=== PATIENT | female | born 1965 | race Caucasian/White ===

== ENCOUNTER → 2016-09-15 | Day surgery (SDC) | payer OTHER ==
--- NOTE | 2016-09-16 09:51 | PATH ---
Surgical Pathology Report Patient Name: NAJMA MONROE [facility]. Rec. #: [id number] /Age/Gender: 1965 (Age: 51) / F Account: [id number] Location: [facility] Taken: 09/15/2016 Received: 09/15/2016 Reported: 09/16/2016 Physicians: Alee Doran Specimen(s) Received A: LEFT BREAST WITH CALCIFICATIONS B: LEFT BREAST SPECIMEN WITHOUT CALCIFICATIONS Clinical History Nonpalpable lesion, microcalcification, suspicious Final Diagnosis A. LEFT BREAST, WITH CALCIFICATION, STEREOTACTIC NEEDLE CORE BIOPSY: BENIGN BREAST TISSUE WITH FIBROCYSTIC CHANGES INCLUDING USUAL DUCTAL HYPERPLASIA (UDH), STROMAL FIBROSIS, DUCTAL DILATATION, CYSTIC APOCRINE METAPLASIA, AND ASSOCIATED CALCIFICATION. B. LEFT BREAST, WITHOUT CALCIFICATION, STEREOTACTIC NEEDLE CORE BIOPSY: BENIGN BREAST TISSUE WITH FIBROCYSTIC CHANGES INCLUDING STROMAL FIBROSIS AND DUCTAL DILATATION. Electronically Signed Duglas Pascal M.D. Gross Description A. Received in formalin labeled "left breast with calcifications," is a 2.0 x 1.3 x 0.3 cm aggregate of multiple mohan-yellow, irregular to cylindrical portions of fibroadipose tissue. The formalin is filtered and the specimen is entirely submitted in one cassette. B. Received in formalin labeled "left breast without calcifications," is a 1.3 x 1.1 x 0.3 cm aggregate of multiple mohan-yellow, irregular to cylindrical portions of fibroadipose tissue. The formalin is filtered and the specimen is entirely submitted in one cassette. 09/15/201609/15/2016
== END | disposition home or self-care (01) ==
LOC: FMAMMOTONE 10:35
PROVIDERS: ATTEND Physician Assistant
PROC: 0HBU3ZX Excision of Left Breast, Percutaneous Approach, Diagnostic (ICD-10-PCS; principal; 2016-09-15)
DX: N60.82 Other benign mammary dysplasias of left breast (principal); R92.8 Other abnormal and inconclusive findings on diagnostic imaging of breast; N60.32 Fibrosclerosis of left breast; N60.12 Diffuse cystic mastopathy of left breast; N64.89 Other specified disorders of breast
CPT/HCPCS: 19081; 87899; 88305-TC; A4648

== ENCOUNTER 2017-05-27 08:44 | Emergency (ER) | payer OTHER ==
[2017-05-27 08:48] VITALS: BP 136/87; PULSE 83; TEMP 98.2; BMI 27.8
--- NOTE | 2017-05-27 09:19 | PDOC ---
History of Present Illness - General Chief Complaint: Ear Problem Stated Complaint: EAR PROBLEM Time Seen by Provider: 05/27/17 09:06 History Source: Patient Exam Limitations: No Limitations - History of Present Illness Initial Comments: 05/27/17 09:25 And came for evaluation of left ear pain. 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 Has been using Tylenol or Motrin. last night had worsening pain in her left ear and then onset of yellowish green drainage from same. Denies further fever, but has some buzzing inear. Timing/Duration: unsure Severity: mild, moderate Associated Symptoms: reports: headaches, malaise. denies: cough, fever/chills Past History - Travel Traveled outside of the country in the last 30 days: No Close contact w/someone who was outside of country & ill: No - Past Medical History Allergies/Adverse Reactions: Allergies Allergy/AdvReac Type Severity Reaction Status Date / Time Iodinated Contrast- Oral and Allergy Intermediate Verified 05/27/17 08:48 IV Dye Home Medications: Ambulatory Orders Amoxicillin - [Amoxicillin 875mg Tablet -] 875 mg PO BID 05/27/17 Ofloxacin Otic [Floxin Otic -] 1 drop BID #10 drops 05/27/17 COPD: No - Suicide/Smoking/Psychosocial Hx Smoking Status: No Smoking History: Never smoked Number of Cigarettes Smoked Daily: 0 Review of Systems - Review of Systems Able to Perform ROS?: Yes Is the patient limited Turkmen proficient: Yes Constitutional: Yes: Symptoms Reported, See HPI, Malaise. No: Chills, Fever HEENTM: Yes: Symptoms Reported, See HPI, Ear Pain, Ear Discharge, Nose Congestion Respiratory: Yes: See HPI. No: Symptoms reported All Other Systems: Reviewed and Negative *Physical Exam - Vital Signs Last Vital Signs Temp Pulse Resp BP Pulse Ox 98.2 F 83 18 136/87 97 05/27/17 08:45 05/27/17 08:45 05/27/17 08:45 05/27/17 08:45 05/27/17 08:45 - Physical Exam General Appearance: Yes: Nourished, Appropriately Dressed, Apparent Distress, Mild Distress HEENT: positive: MARIA ANTONIA, Pharynx Normal, Rhinorrhea, Hearing Grossly Normal, TM Bulging, TM Dull. 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 NML intact, Fully Oriented, Alert, Normal Mood/ Affect, Normal Response, Motor Strength 5/5 *DC/Admit/Observation/Transfer Diagnosis at time of Disposition: Otitis media Qualifiers: Otitis media type: suppurative Chronicity: acute Laterality: left Recurrence: not specified as recurrent Spontaneous tympanic membrane rupture: with spontaneous rupture Qualified Code(s): H66.012 - Acute suppurative otitis media with spontaneous rupture of ear drum, left ear - Discharge Dispostion Disposition: HOME Condition at time of disposition: Stable Admit: No - Referrals Referrals: Bart Munguia MD [Primary Care Provider] - Shaun Pelletier MD [Staff Physician] - - Patient Instructions Printed Discharge Instructions: DI for Otitis Media (Middle Ear Infection)- Child Additional Instructions: Rest, lots of fluids; water, teas, soups Saltwater girls and steamy showers Hot wet soaks to ear/hot packs may help relieve some pain Continue ibuprofen or Tylenol for pain and fevers Complete all antibiotics as directed followup with private physician / ENT doctor in 2-3 days - Post Discharge Activity Forms/Work/School Notes: Back to Work
== END 2017-05-27 09:26 | disposition home or self-care (01) ==
LOC: JERFT 08:44
DX: H66.012 Acute suppurative otitis media with spontaneous rupture of ear drum, left ear (principal)
CPT/HCPCS: 99281-25

== ENCOUNTER 2017-07-22 12:57 | Emergency (ER) | payer OTHER ==
[2017-07-22 13:14] VITALS: BP 155/96; PULSE 89; TEMP 98; BMI 25.9
--- NOTE | 2017-07-22 13:58 | PDOC ---
History of Present Illness - General Chief Complaint: Sore Throat Stated Complaint: SORE THROAT, FEVER Time Seen by Provider: 07/22/17 13:30 - History of Present Illness Initial Comments: 07/22/17 13:52 The patient is a 52 year old female with no significant PMH who presents for evaluation of sore throat. The patient reports a 4 day history of sore throat and nasal congestion. She notes worsening symptoms over the past 2 days prompting her presentation to the ED for evaluation. She notes a cough, but denies any fevers, chills, SOB, chest pain, nausea, vomiting, abdominal pain, or changes with urination or bowel movements. Past History - Past Medical History Allergies/Adverse Reactions: Allergies Allergy/AdvReac Type Severity Reaction Status Date / Time Iodinated Contrast- Oral and Allergy Intermediate Verified 07/22/17 13:11 IV Dye Home Medications: Ambulatory Orders Naproxen [Naprosyn -] 375 mg PO BID #20 tablet 07/22/17 COPD: No - Surgical History Abdominal Surgery: Yes (kb arguello) - Suicide/Smoking/Psychosocial Hx Smoking Status: No Smoking History: Never smoked Have you smoked in the past 12 months: No Number of Cigarettes Smoked Daily: 0 Hx Alcohol Use: No Drug/Substance Use Hx: No Substance Use Type: None Review of Systems - Review of Systems Comments:: 07/22/17 13:56 Constitutional: No fevers, chills, fatigue, malaise HEENT: Nasal congestion. Sore Throat. No Rhinorrhea, visual changes Cardiovascular: No chest pain, syncope, palpitations, lightheadedness Respiratory: Cough. No SOB, Hemoptysis, Gastrointestinal: No Abdominal pain, Nausea, Vomiting, Constipation, Diarrhea, Melena Genitourinary: No Dysuria, Frequency, Urgency, Hesitancy, Hematuria, Flank pain Musculoskeletal: No Myalgia, arthralgia Skin: No rashes, itching, bruising, pallor Neurologic: No Headache, Dizziness, Numbness, Weakness, or Tingling Psychiatric: No Hallucinations. No SI or HI *Physical Exam - Vital Signs Last Vital Signs Temp Pulse Resp BP Pulse Ox 98 F 89 18 155/96 99 07/22/17 12:57 07/22/17 12:57 07/22/17 12:57 07/22/17 12:57 07/22/17 12:57 - Physical Exam Comments: 07/22/17 13:58 General Appearance: Nourished. No Apparent Distress HEENT: Rhinnorhea noted. Pharyngeal Erythema. No Tonsillar Exudate, Tonsillar Erythema Neck: Tender Cervical Lymphadenopathy Respiratory/Chest: Lungs Clear, Normal Breath Sounds. No Crackles, Rales, Rhonchi, Wheezing Cardiovascular: Regular Rhythm, Regular Rate. No Murmur, Gallops, Rubs Gastrointestinal/Abdominal: Normal Bowel Sounds, Soft. No Guarding, Rebound, Tenderness Musculoskeletal: No CVA Tenderness Extremity: Normal Capillary Refill Integumentary: Normal Color, Dry, Warm Neurologic: Fully Oriented, Alert, Normal Mood/Affect, Normal Response, Medical Decision Making - Medical Decision Making 07/22/17 13:59 The patient is a 52 year old female with no significant PMH who presents for evaluation of sore throat. Differential includes but is not limited to: Viral syndrome vs. Bacterial pharyngitis vs. Strep. Given the patient's cough, lack of fever, and lack of exudates, it is likely the patient's symptoms are due to a viral syndrome. However we will send a rapid strep to evaluate further. We will continue to monitor and reassess. 07/22/17 14:20 Rapid strep is negative. The patient's symptoms are likely due to a viral syndrome. We discussed with the patient that she should use warm salt water gargles to help with her symptoms. We are comfortable discharging the patient home with primary care provider follow up. The patient voiced understanding and is agreeable with the plan. *DC/Admit/Observation/Transfer Diagnosis at time of Disposition: Viral pharyngitis - Discharge Dispostion Disposition: HOME Condition at time of disposition: Good Admit: No - Prescriptions Prescriptions: Naproxen [Naprosyn -] 375 mg PO BID #20 tablet - Referrals - Patient Instructions Printed Discharge Instructions: DI for Viral Pharyngitis Additional Instructions: Please return to the ER if you experience concerning or worsening symptoms including fevers, difficulty breathing, or chest pain. Your symptoms are likely due to a viral illness. You may use warm salt water gargle to help with your symptoms and we have sent a prescription for Naprosyn to your pharmacy that you may take twice a day as needed for pain management. Please call to schedule a follow up appointment with your primary care provider within 2-3 days to discuss your ER visit and further management of your symptoms. - Post Discharge Activity
[2017-07-22] MEDS ORDERED: NAPROXEN 375 MG TABLET (FP) PO ONE (14:19)
--- NOTE | 2017-07-22 14:20 | PDOC ---
Attending Attestation - Resident Resident Name: NinfaOswald - ED Attending Attestation I have performed the following: I have examined & evaluated the patient, The case was reviewed & discussed with the resident, I agree w/resident's findings & plan - HPI HPI: 07/22/17 14:19 52-year-old female with no significant past medical history presents with 4-5 days of sore throat with cough. She also has a slight headache. She denies fever or chills. - Physicial Exam PE: 07/22/17 14:19 Patient is awake and alert, she appears well. Her eyes are clear with pink conjunctiva. Tympanic membranes are clear. Nose is clear without discharge. Oropharynx with mild erythema but no exudates. Uvula is midline. There is no trismus. Neck with positive submandibular and posterior cervical lymphadenopathy bilaterally. Chest is clear without crackles or wheezes. Heart is regular rhythm without gallop or murmur. Abdomen is benign. Extremities are normal without edema. Skin is without rash. - Medical Decision Making 07/22/17 14:20 Patient has only one of 4 criteria positive for strep. No fever, no exudates, positive adenopathy, positive cough. Quick strep performed, negative for strep. Patient will be treated for viral upper respiratory infection with Naprosyn, warm saltwater gargles, and medical follow-up if symptoms have not resolved in a few days.
[2017-07-22] MEDS ORDERED: NAPROXEN 375 MG TABLET (FP) ONE (14:22)
== END 2017-07-22 14:34 | disposition home or self-care (01) ==
LOC: FER 12:57
DX: J02.8 Acute pharyngitis due to other specified organisms (principal); B97.89 Other viral agents as the cause of diseases classified elsewhere
CPT/HCPCS: 87070; 87430; 99282-25

== ENCOUNTER 2017-12-26 10:19 | Day surgery (SDC) | payer OTHER ==
[2017-12-26 11:39] VITALS: BMI 26.4
[2017-12-26 12:15] VITALS: TEMP 97.8
[2017-12-26 13:22] VITALS: BP 120/64; PULSE 68
--- NOTE | 2017-12-27 13:11 | PATH ---
Surgical Pathology Report Patient Name: NAJMA MONROE [facility]. Rec. #: [id number] /Age/Gender: 1965 (Age: 52) / F Account: [id number] Location: [facility] Taken: 12/26/2017 Received: 12/26/2017 Reported: 12/27/2017 Physicians: iMki Mccullough D.O. Specimen(s) Received BX DESCENDING COLON POLYP Clinical History Colon screening Postoperative diagnosis: Polyp, hemorrhoids, diverticulosis Final Diagnosis DESCENDING COLON, POLYP, BIOPSY: POLYPOID COLONIC MUCOSA WITH LYMPHOID AGGREGATES. Electronically Signed Sudha Harrell M.D. Gross Description Received in formalin, labeled "polyp descending colon biopsy" are 2 mohan, irregular portions of soft tissue measuring 0.3 and 0.4 cm. in greatest dimension. The specimens are submitted in toto in one cassette. 12/26/201712/26/2017
== END 2017-12-26 13:23 | disposition home or self-care (01) ==
LOC: JASU-ENDO 10:19
PROVIDERS: ATTEND Internal Medicine Gastroenterology
PROC: 0DBM8ZX Excision of Descending Colon, Via Natural or Artificial Opening Endoscopic, Diagnostic (ICD-10-PCS; principal; 2017-12-26 12:45)
DX: Z12.11 Encounter for screening for malignant neoplasm of colon (principal); K57.30 Diverticulosis of large intestine without perforation or abscess without bleeding; K64.8 Other hemorrhoids
CPT/HCPCS: 88305-TC

== ENCOUNTER 2018-02-28 09:30 | Emergency (ER) | payer OTHER ==
[2018-02-28 09:34] VITALS: BP 152/92; PULSE 106; TEMP 98.6; BMI 27.3
--- NOTE | 2018-02-28 09:36 | PDOC ---
History of Present Illness - General Chief Complaint: Sore Throat Stated Complaint: sore throat, cough Time Seen by Provider: 02/28/18 09:33 - History of Present Illness Initial Comments: 02/28/18 10:11 Chief Complaint: URI symptoms including sore throat, nasal congestion, runny nose, and nonproductive cough. History of present illness: Above symptoms for several days. Taking over-the- counter medication with partial relief. 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 She is has no contact with small children on a usual basis. Review of systems: No fever, chills, chest pain, shortness of breath, abdominal pain, nausea, vomiting, diarrhea, earache. Past medical history: Healthy female, prior normal pregnancies, serious medical or surgical problems. Social/family history: No tobacco alcohol or nonprescription drugs. Otherwise noncontributory Physical exam: Alert oriented well-developed well-nourished no acute distress cheerful and cooperative Afebrile, vital signs normal HEENT: Mild nasal congestion, watery nasal discharge, throat mildly injected without exudate, without appreciable swelling or masses. Ears clear Neck supple without bruit mass or nodes Lungs clear with full breath sounds throughout bilaterally. No wheezes rales or rhonchi. No tachypnea or dyspnea CV regular without murmur rub or gallop Abdomen benign Skin clear, no rash, adequate turgor and wet mucous membranes Neurological intact Impression: Mild viral URI, rule out strep Plan: Throat culture and appropriate medical management depending on results. Past History - Past Medical History Allergies/Adverse Reactions: Allergies Allergy/AdvReac Type Severity Reaction Status Date / Time Iodinated Contrast- Oral and Allergy Intermediate Verified 02/28/18 09:31 IV Dye Home Medications: Ambulatory Orders Fexofenadine/Pseudoephedrine [Sirena-D 24 Hour Tablet] 1 each PO DAILY #10 tab.er.24h 02/28/18 Guaifenesin AC [Robitussin-AC] 1 - 2 tsp PO Q4HWA PRN #90 ml MDD 8 02/28/18 COPD: No - Surgical History Abdominal Surgery: Yes (ABDOMINOPLASTY) Cholecystectomy: Yes (LAPAROSCOPIC CHOLECYSTECTOMY) - Suicide/Smoking/Psychosocial Hx Smoking Status: No Smoking History: Never smoked Have you smoked in the past 12 months: No Number of Cigarettes Smoked Daily: 0 Hx Alcohol Use: No Drug/Substance Use Hx: No Substance Use Type: None *Physical Exam - Vital Signs Last Vital Signs Temp Pulse Resp BP Pulse Ox 98.6 F 106 H 18 152/92 100 02/28/18 09:31 02/28/18 09:31 02/28/18 09:31 02/28/18 09:31 02/28/18 09:31 Medical Decision Making - Medical Decision Making 02/28/18 10:49 Throat culture is negative Symptomatic treatment and follow-up primary physician Improved with medication. No further coughing *DC/Admit/Observation/Transfer Diagnosis at time of Disposition: Viral upper respiratory infection - Discharge Dispostion Disposition: HOME Condition at time of disposition: Stable Decision to Admit order: No - Prescriptions Prescriptions: Fexofenadine/Pseudoephedrine [Sirena-D 24 Hour Tablet] 1 each PO DAILY #10 tab.er.24h Guaifenesin AC [Robitussin-AC] 1 - 2 tsp PO Q4HWA PRN #90 ml MDD 8 PRN Reason: Cough - Referrals Referrals: Bart Munguia MD [Primary Care Provider] - 2 Days - Patient Instructions Printed Discharge Instructions: DI for Viral Upper Respiratory Infection -- Adult Additional Instructions: Rest, fluids, Tylenol, medication as prescribed. Return to ER if there is fever or difficulty breathing. Otherwise follow-up primary physician - Post Discharge Activity
[2018-02-28] MEDS ORDERED: guaiFENesin/D-METHORPHAN HB 10 ML UNIT-DOSE CUPS PO ONE (10:00)
[2018-02-28] MEDS ORDERED: ACETAMINOPHEN 325 MG TABLET (FP) PO ONE (10:01)
[2018-02-28] MEDS ORDERED: PSEUDOEPHEDRINE HCL 30 MG TABLET PO ONE (10:05)
[2018-02-28] MEDS ORDERED: PSEUDOEPHEDRINE HCL 30 MG TABLET ONE (10:05)
[2018-02-28] MEDS ORDERED: ACETAMINOPHEN 325 MG TABLET (FP) ONE (10:05)
[2018-02-28] MEDS ORDERED: guaiFENesin/D-METHORPHAN HB 10 ML UNIT-DOSE CUPS ONE (10:05)
== END 2018-02-28 10:58 | disposition home or self-care (01) ==
LOC: FER 09:30
DX: J06.9 Acute upper respiratory infection, unspecified (principal)
CPT/HCPCS: 87070; 87077; 87430; 99281-25

== ENCOUNTER 2022-11-28 16:12 | Emergency (ER) | payer OTHER ==
[2022-11-28 16:28] VITALS: TEMP 98.8; BMI 26.4
[2022-11-28] MEDS ORDERED: METOCLOPRAMIDE HCL INJECTION 10 MG/2 ML VIAL IVPUSH ONE (17:43)
[2022-11-28] MEDS ORDERED: SODIUM CHLORIDE 0.9% 500 ML INFUS.BAG IV ONE (17:43)
[2022-11-28] MEDS ORDERED: FAMOTIDINE 20 MG/50 ML IVPB 20 MG/50 ML MG IVPB ONE ×2 (17:48→18:31)
[2022-11-28] MEDS ORDERED: MECLIZINE HCL 12.5 MG TABLET PO ONE (17:58)
[2022-11-28] MEDS ORDERED: METOCLOPRAMIDE HCL INJECTION 10 MG/2 ML VIAL ONE (18:03)
[2022-11-28 18:26] LABS: BASO % 0.5 % (0-2.0); EOS % 0.4 % (0-4.5); HEMATOCRIT 45.6 % (32.4-45.2); HEMOGLOBIN 15.4 GM/dL (10.7-15.3); LYMPH % 50.1 % (8-40); MCH 29.5 pg (25.7-33.7); MCHC 33.7 g/dl (32.0-36.0); MEAN CELL VOLUME 87.7 fl (80-96); MEAN PLT VOLUME 8.9 fl (7.5-11.1); MONO % 5.9 % (3.8-10.2); NEUT % 43.1 % (42.8-82.8); PLATELET COUNT 327 10^3/uL (134-434); RDW 14.7 % (11.6-15.6); WHITE BLOOD COUNT 5.8 K/mm3 (4.0-10.0)
[2022-11-28] MEDS ORDERED: MECLIZINE HCL 12.5 MG TABLET ONE (18:35)
[2022-11-28 19:04] LABS: POTASSIUM 4.2 mmol/L (3.5-5.1)
[2022-11-28 19:05] LABS: CALCIUM 9.7 mg/dL (8.5-10.1)
[2022-11-28 19:06] LABS: ALBUMIN 4.1 g/dl (3.4-5.0); BLOOD UREA NITROGEN 8.9 mg/dL (7-18)
[2022-11-28 19:09] LABS: CREATININE 0.6 mg/dL (0.55-1.3)
[2022-11-28 19:11] LABS: BILIRUBIN,TOTAL 0.6 mg/dL (0.2-1); TOT PROT 7.8 g/dl (6.4-8.2)
[2022-11-28 20:14] LABS: URINE APPEARANCE CLEAR; URINE BILIRUBIN NEGATIVE (NEGATIVE); URINE COLOR YELLOW; URINE GLUCOSE (UA) NEGATIVE (NEGATIVE); URINE KETONE NEGATIVE (NEGATIVE); URINE LEUK ESTERASE NEGATIVE (NEGATIVE); URINE NITRITE NEGATIVE (NEGATIVE); URINE PROTEIN NEGATIVE (NEGATIVE); URINE UROBILINOGEN 0.2 mg/dL (0.2-1.0)
[2022-11-28 20:20] VITALS: BP 114/70; PULSE 87; RESP 16
== END 2022-11-28 20:33 | disposition home or self-care (01) ==
LOC: JER 16:12
PROC: 3E033GC Introduction of Other Therapeutic Substance into Peripheral Vein, Percutaneous Approach (ICD-10-PCS; principal; 2022-11-28)
PROC: 3E033GC Introduction of Other Therapeutic Substance into Peripheral Vein, Percutaneous Approach (ICD-10-PCS; 2022-11-28)
DX: R42 Dizziness and giddiness (principal); R10.9 Unspecified abdominal pain; R11.0 Nausea; R63.0 Anorexia; R53.83 Other fatigue; R63.1 Polydipsia; R35.89 Other polyuria; R19.7 Diarrhea, unspecified; R53.81 Other malaise
CPT/HCPCS: 36415; 80053; 81003; 84439; 84443; 85025; 87086; 93005; 93010; 99284-25